=== PATIENT | female | born 1965 | race Caucasian/White ===

== ENCOUNTER → 2021-05-27 06:20 | Outpatient (CLI) | payer OTHER | END | disposition home or self-care (01) | LOC: LAB 06:20 | PROVIDERS: ATTEND Internal Medicine | DX: U07.1 COVID-19 (principal); B39.1 Chronic pulmonary histoplasmosis capsulati ==

== ENCOUNTER 2021-05-27 07:23 | Outpatient (CLI) | payer OTHER | END 2021-05-27 07:27 | disposition home or self-care (01) | LOC: NUCLEAR 07:23 | PROVIDERS: ATTEND Internal Medicine | DX: I25.10 Atherosclerotic heart disease of native coronary artery without angina pectoris (principal) ==